=== PATIENT | male | born 1950 | race Caucasian/White ===

== ENCOUNTER 2017-02-12 06:05 | Day surgery (SDC) | payer BC ==
--- NOTE | ~2017-02-12 | EGD ---
EGD REPORT [facility] [address] [place] [place] [address] NAME: JOSSE GRAY : [birth year] STATUS : REG [facility]#: [id number] AGE: 66 ADM/REG DATE : 02/12/17 MR#: [id number] REPORT SERV DATE: 02/12/17 DICTATED BY: JYOTSNA PORRAS DATE: 02/12/17 REPORT STATUS : Draft TRANSCRIBED BY: [employer] DATE: 02/12/17 [facility]oscopy Center Patient Name: Josse Gray Date of : 1950 Attending MD: JYOTSNA PORRAS MD Procedure Date No Time: 02/12/2017 Procedure: Colonoscopy Indications: High risk colon cancer surveillance: Personal history of colonic polyps, FH of Colonic Polyps - 1st degree relative Referring MD: ANTONELLA MAJANO Medicines: as per anesthesia Complications: No immediate complications. Procedure: Pre-Anesthesia Assessment: - ASA Grade Assessment: III - A patient with severe systemic disease. After I obtained informed consent, the scope was passed under direct vision. Throughout the procedure, the patient's blood pressure, pulse, and oxygen saturations were monitored continuously. The Colonoscope was introduced through the anus and advanced to the cecum, identified by appendiceal orifice and ileocecal valve. The colonoscopy was performed without difficulty. The patient tolerated the procedure. The quality of the bowel preparation was adequate to identify polyps. Findings: The perianal and digital rectal examinations were normal. Internal hemorrhoids were found during endoscopy and were mild. Impression: - Internal hemorrhoids. Recommendation: - Repeat colonoscopy in 5 years for surveillance. Procedure Code(s): --- Professional --- 87083, Colonoscopy, flexible, proximal to splenic flexure; diagnostic, with or without collection of specimen(s) by brushing or washing, with or without colon decompression (separate procedure) Diagnosis Code(s): --- Professional --- K64.8, Other hemorrhoids Z86.010, Personal history of colonic polyps Z83.71, Family history of colonic polyps EGD REPORT [facility] [address] [facility] [facility]. [address] NAME: JOSSE GRAY : [birth year] STATUS : REG [facility]#: [id number] AGE: 66 ADM/REG DATE : 02/12/17 MR#: [id number] REPORT SERV DATE: 02/12/17 DICTATED BY: JYOTSNA PORARS. DATE: 02/12/17 REPORT STATUS : Draft TRANSCRIBED BY: [employer] DATE: 02/12/17 CPT copyright 2013 [employer]. All rights reserved. The codes documented in this report are preliminary and upon carton inspector review may be revised to meet current compliance requirements. JYOTSNA PORRAS MD 02/12/2017 7:44 AM This report has been signed electronically. Number of Addenda: 0 Note Initiated On: 02/12/2017 7:24 AM Scope Withdrawal Time 0 hours 6 minutes 1 second [address] [place] [address]
--- NOTE | ~2017-02-12 | EGD ---
EGD REPORT [facility] [address] [address] NAME: JOSSE GRAY : [birth year] STATUS : REG [facility]#: [id number] AGE: 66 ADM/REG DATE : 02/12/17 MR#: [id number] REPORT SERV DATE: 02/12/17 DICTATED BY: JYOTSNA PORRAS DATE: 02/12/17 REPORT STATUS : Draft TRANSCRIBED BY: [facility] DATE: 02/12/17 [facility]oscopy Center Patient Name: Josse Gray Date of : 1950 Attending MD: JYOTSNA PORRAS MD Procedure Date No Time: 02/12/2017 Procedure: Upper GI endoscopy Indications: Heartburn, Suspected esophageal reflux Referring MD: ANTONELLA MAJANO Medicines: as per anesthesia Complications: No immediate complications. Procedure: Pre-Anesthesia Assessment: - ASA Grade Assessment: III - A patient with severe systemic disease. After obtaining informed consent, the endoscope was passed under direct vision. Throughout the procedure, the patient's blood pressure, pulse, and oxygen saturations were monitored continuously. The GIF [id number] was introduced through the mouth, and advanced to the third part of duodenum. The upper GI endoscopy was accomplished without difficulty. The patient tolerated the procedure. Findings: The examined esophagus was normal. The entire examined stomach was normal. The cardia and gastric fundus were normal on retroflexion. The examined duodenum was normal. Impression: - Normal esophagus. - Normal stomach. - Normal examined duodenum. Recommendation: - Follow an antireflux regimen. - Continue present medications. Procedure Code(s): --- Professional --- 52011, Esophagogastroduodenoscopy, flexible, transoral; diagnostic, including collection of specimen(s) by brushing or washing, when performed (separate procedure) Diagnosis Code(s): --- Professional --- R12, Heartburn EGD REPORT [facility] [address] [place] [address] [place]. [address] NAME: JOSSE GRAY : [birth year] STATUS : REG [facility] PAT#: [id number] AGE: 66 ADM/REG DATE : 02/12/17 MR#: [id number] REPORT SERV DATE: 02/12/17 DICTATED BY: JYOTSNA PORRAS. DATE: 02/12/17 REPORT STATUS : Draft TRANSCRIBED BY: [employer] DATE: 02/12/17 CPT copyright 2013 [employer]. All rights reserved. The codes documented in this report are preliminary and upon certified coder review may be revised to meet current compliance requirements. JYOTSNA PORRAS MD 02/12/2017 7:26 AM This report has been signed electronically. Number of Addenda: 0 Note Initiated On: 02/12/2017 7:04 AM Scope Withdrawal Time 0 hours 0 minutes 0 seconds [address] [place] [address]
[~2017-02-12 06:05] MED LIST: ASAB PO; BREO ELLIPTA INH; KAPIDEX60 MG PO; LIPITOR10 PO; LIPITOR20 PO; NEXIUM40 PO; PREV30 PO; SINGULAIR1 PO; SINGULAIR5 PO; STOOL SOFT PO; Z100 PO; [UNRECOGNIZED DRUG - OTHER] PO
== END 2017-02-12 23:59 | disposition home or self-care (01) ==
LOC: DMU 06:05
PROVIDERS: Internal Medicine Gastroenterology
PROC: 0DJD8ZZ Inspection of Lower Intestinal Tract, Via Natural or Artificial Opening Endoscopic (ICD-10-PCS; principal; 2017-02-12 07:00)
PROC: 0DJ08ZZ Inspection of Upper Intestinal Tract, Via Natural or Artificial Opening Endoscopic (ICD-10-PCS; 2017-02-12 07:00)
DX: K64.8 Other hemorrhoids (principal); K21.9 Gastro-esophageal reflux disease without esophagitis; E78.5 Hyperlipidemia, unspecified; J45.909 Unspecified asthma, uncomplicated; E78.00 Pure hypercholesterolemia, unspecified; M10.9 Gout, unspecified; E66.01 Morbid (severe) obesity due to excess calories; Z86.010 Personal history of colon polyps; Z83.71 Family history of colonic polyps; Z87.891 Personal history of nicotine dependence; Z79.82 Long term (current) use of aspirin; Z79.899 Other long term (current) drug therapy; Z98.890 Other specified postprocedural states